=== PATIENT | male | born 1955 | race Caucasian/White ===

== ENCOUNTER 2016-08-01 23:25 | Inpatient (IN) | payer BC, OTHER ==
[2016-08-01] MEDS ORDERED: NS 1,000 ML IV ONE (23:39)
--- NOTE | 2016-08-01 23:39 | EDPHY ---
H & P Stated Complaint: prostate biopy 07/30 N/V chills Source: Patient - Personal History Current Tetanus Diphtheria and Acellular Pertussis (TDAP): Yes - Medical/Surgical History Hx Asthma: No Hx Chronic Respiratory Disease: No Hx Diabetes: No Hx Cardiac Disease: No Hx Renal Disease: No Hx Cirrhosis: No Hx Alcoholism: No Hx HIV/AIDS: No Hx Splenectomy or Spleen Trauma: No Other PMH: recent elevated TSA - Social History Smoking Status: Never smoked HPI/ROS: HPI CHIEF COMPLAINT: Nausea, vomiting, rigors, chills, recent prostate biopsy HISTORY OF PRESENT ILLNESS: This patient very pleasant 61-year-old male, presents emergency room with rigors and chills nausea vomiting x3 episodes approximately an hour ago while trying to go to bed. On Thursday he had a prostate biopsy done at the [facility] this was a transrectal bx. He tolerated this procedure well. He had a normal bowel movement earlier today. Been eating and drinking well. Denies developed sudden-onset chills and rigors and vomiting. Denies any significant chest pain or shortness of breath. He does have some lower pelvic pain. And rectal pain. Denies bloody stools. Denies dysuria he did had initially after the biopsy have some blood in his urine and blood per rectum however this is resolved he tells me. This prostate biopsy was due for to an elevated PSA. T-max at home 99.7. Was given Tylenol prior to arrival. Past Medical History: GERD Past Surgical History: Transrectal biopsy of the prostate Social History: Denies daily use of drugs alcohol tobacco products Family History: Noncontributory ROS REVIEW OF SYSTEMS: A comprehensive 10 point review of systems is otherwise negative aside from elements mentioned in the history of present illness. Exam Constitutional appears well nontoxic, triage nursing summary reviewed, vital signs reviewed, awake/alert. Eyes normal conjunctivae and sclera, EOMI, PERRLA. HENT normal inspection, atraumatic, moist mucus membranes, no epistaxis, neck supple/ no meningismus, no raccoon eyes. Respiratory clear to auscultation bilaterally, normal breath sounds, no respiratory distress, no wheezing. Cardiovascular rate normal, regular rhythm, no murmur, no edema, distal pulses normal. Gastrointestinal soft, non-tender, no rebound, no guarding, normal bowel sounds, no distension, no pulsatile mass. Genitourinary no CVA tenderness. Musculoskeletal no midline vertebral tenderness, full range of motion, no calf swelling, no tenderness of extremities, no meningismus, good pulses, neurovascularly intact. Skin pink, warm, & dry, no rash, skin atraumatic. Neurologic awake, alert and oriented x 3, AAOx3, moves all 4 extremities equally, motor intact, sensory intact, CN II-XII intact, normal cerebellar, normal vision, normal speech. Psychiatric normal mood/affect. Heme/Lymph/Immune no lymphadenopathy. Differential Diagnosis: Includes but is not limited to in a particular order sepsis, bacteremia, prostatitis, urinary tract infection Medical Decision Making: Plan for this patient IV establishment, blood cultures , lactic acid, IV fluid bolus IV Zofran urinalysis and re-evaluation. Re-evaluation: CT scan of the abdomen pelvis with IV contrast. The results of the study are no evidence of significant abscess or significant inflammation, minimal rectal stranding from biopsy. The study was read by Dr. Jose Huang I viewed the images myself on the PACS system. [id number]: Spoke with the hospitalist service they agree to admit this patient for observation overnight for rigors chills and possible fever after transrectal prostate biopsy. No evidence of intra-abdominal abscess on CT scan , urine does not show signs of infection. The patient did receive 2 g Rocephin here in the emergency room. Blood cultures have been pulled. Urine cultures been sent. Patient is hemodynamically stable and comfortable with plan of being observed overnight. Reason for observation is rigors, chills, 99.7 fever at recent transrectal biopsy. Rule out bacteremia. (Lukas Loera) Constitutional: Initial Vital Signs Temperature (C) 37.3 C 08/01/16 23:31 Heart Rate 101 H 08/01/16 23:31 Respiratory Rate 20 08/01/16 23:31 Blood Pressure 134/88 H 08/01/16 23:31 O2 Sat (%) 94 08/01/16 23:31 O2 Delivery Mode Room Air Allergies/Adverse Reactions: No Known Allergies Allergy (Unverified 08/01/16 23:31) Home Medications: Medication Instructions Recorded PRILOSEC 20 mg PO DAILY 08/25/09 Amoxicillin/Clavulanate Pot 875 mg PO BID #28 tab 08/02/16 [Augmentin 875 MG TAB (*)] Medical Decision Making ED Course/Re-evaluation: The patient was boarded in the emergency department and evaluated in the morning by Dr. Josh Bledsoe. The patient will be discharged home from the ED after his observation admission with oral antibiotics. Customary aftercare instructions are given to the patient. (Mikey Ortiz) - Data Points Laboratory Results: Laboratory Results 08/01/16 23:51 08/01/16 23:51 08/02/16 08/01/16 08/01/16 00:50 23:51 23:51 WBC 9.61 10^3/uL H 10^3/uL (3.80-9.50) RBC 4.75 10^6/uL 10^6/uL (4.40-6.38) Hgb 14.7 g/dL g/dL (13.7-17.5) Hct 41.3 % % (40.0-51.0) MCV 86.9 fL fL (81.5-99.8) MCH 30.9 pg pg (27.9-34.1) MCHC 35.6 g/dL g/dL (32.4-36.7) RDW 12.4 % % (11.5-15.2) Plt Count 207 10^3/uL 10^3/uL (150-400) MPV 9.8 fL fL (8.7-11.7) Neut % (Auto) 90.7 % H % (39.3-74.2) Lymph % (Auto) 6.9 % L % (15.0-45.0) [place] % (Auto) 0.5 % L % (4.5-13.0) Eos % (Auto) 0.8 % % (0.6-7.6) Baso % (Auto) 0.4 % % (0.3-1.7) Nucleat RBC Rel Count 0.0 % % (0.0-0.2) Absolute Neuts (auto) 8.71 10^3/uL H 10^3/uL (1.70-6.50) Absolute Lymphs (auto) 0.66 10^3/uL L 10^3/uL (1.00-3.00) Absolute Monos (auto) 0.05 10^3/uL L 10^3/uL (0.30-0.80) Absolute Eos (auto) 0.08 10^3/uL 10^3/uL (0.03-0.40) Absolute Basos (auto) 0.04 10^3/uL 10^3/uL (0.02-0.10) Absolute Nucleated RBC 0.00 10^3/uL 10^3/uL (0-0.01) Immature Gran % 0.7 % % (0.0-1.1) Immature Gran # 0.07 10^3/uL 10^3/uL (0.00-0.10) VBG Lactic Acid Sodium 144 mEq/L mEq/L (134-144) Potassium 4.0 mEq/L mEq/L (3.5-5.2) Chloride 110 mEq/L mEq/L (97-110) Carbon Dioxide 23 mEq/l mEq/l (22-31) Anion Gap 11 mEq/L mEq/L (8-16) BUN 26 mg/dL H mg/dL (7-23) Creatinine 1.4 mg/dL H mg/dL (0.7-1.3) Estimated GFR 52 Glucose 100 mg/dL mg/dL (70-100) Calcium 9.9 mg/dL mg/dL (8.5-10.4) Urine Color YELLOW Urine Appearance CLEAR Urine pH 5.0 (5.0-7.5) Ur Specific [place] 1.023 (1.002-1.030) Urine Protein NEGATIVE (NEGATIVE) Urine Ketones TRACE H (NEGATIVE) Urine Blood NEGATIVE (NEGATIVE) Urine Nitrate NEGATIVE (NEGATIVE) Urine Bilirubin NEGATIVE (NEGATIVE) Urine Urobilinogen NEGATIVE EU EU (0.2-1.0) Ur Leukocyte Esterase NEGATIVE (NEGATIVE) Urine Glucose NEGATIVE (NEGATIVE) 08/01/16 23:51 WBC RBC Hgb Hct MCV MCH MCHC RDW Plt Count MPV Neut % (Auto) Lymph % (Auto) [place] % (Auto) Eos % (Auto) Baso % (Auto) Nucleat RBC Rel Count Absolute Neuts (auto) Absolute Lymphs (auto) Absolute Monos (auto) Absolute Eos (auto) Absolute Basos (auto) Absolute Nucleated RBC Immature Gran % Immature Gran # VBG Lactic Acid 1.5 mmol/L mmol/L (0.7-2.1) Sodium Potassium Chloride Carbon Dioxide Anion Gap BUN Creatinine Estimated GFR Glucose Calcium Urine Color Urine Appearance Urine pH Ur Specific [place] Urine Protein Urine Ketones Urine Blood Urine Nitrate Urine Bilirubin Urine Urobilinogen Ur Leukocyte Esterase Urine Glucose Microbiology Results: MICROBIOLOGY 08/01/16 23:51 Blood Blood Culture - Preliminary Gram Negative Jose 08/02/16 00:50 Urine,Clean Catch Urine Culture - Preliminary Medications Given: Discontinued Medications Sodium Chloride (Ns) 1,000 mls @ 0 mls/hr IV ONCE ONE PRN Reason: Wide Open Stop: 08/01/16 23:40 Last Admin: 08/01/16 23:56 Dose: 1,000 mls Ceftriaxone Sodium 2 gm/ (Dextrose) 50 mls @ 100 mls/hr IV EDNOW ONE PRN Reason: Protocol Stop: 08/02/16 00:15 Last Admin: 08/02/16 00:15 Dose: 50 mls Sodium Chloride (Ns) 1,000 mls @ 0 mls/hr IV ONCE ONE PRN Reason: Wide Open Stop: 08/02/16 01:19 Last Admin: 08/02/16 01:18 Dose: 1,000 mls Ondansetron HCl (Zofran) 4 mg IVP EDNOW ONE Stop: 08/01/16 23:41 Last Admin: 08/01/16 23:56 Dose: 4 mg Departure - Departure Disposition: [facility] Acute Clinical Impression: Rigors Fever Qualifiers: Fever type: unspecified Qualified Code(s): R50.9 - Fever, unspecified Abdominal pain Qualifiers: Abdominal location: lower abdomen, unspecified Qualified Code(s): R10.30 - Lower abdominal pain, unspecified Condition: Good
[2016-08-01] MEDS ORDERED: ONDANSETRON 4 MG/2 ML VIAL IVP ONE (23:40)
[2016-08-01] MEDS ORDERED: cefTRIAXone 2 GM in D5W 50 ML IV ONE (23:46)
[2016-08-02] LABS: % IMMATURE GRANULYOCYTES 0.7 % (0.0-1.1); ABSOLUTE IMMATURE GRANULOCYTES 0.07 10^3/uL (0.00-0.10); ADD DIFF? NO; ADD MORPH? NO; ADD SCAN? NO; ATYPICAL LYMPHOCYTE FLAG 0 (0-99); FRAGMENT RBC FLAG 0 (0-99); HEMATOCRIT 41.3 % (40.0-51.0); HEMOGLOBIN 14.7 g/dL (13.7-17.5); LEFT SHIFT FLG 10 (0-99); LIPEMIA HEMOLYSIS FLAG 90 (0-99); MEAN CELL HEMOGLOBIN 30.9 pg (27.9-34.1); MEAN CELL HEMOGLOBIN CONCENTR. 35.6 g/dL (32.4-36.7); MEAN CELL VOLUME 86.9 fL (81.5-99.8); MEAN PLATELET VOLUME 9.8 fL (8.7-11.7); PLATELET CLUMPS FLAG 0 (0-99); PLATELET COUNT 207 10^3/uL (150-400); RED BLOOD CELL COUNT 4.75 10^6/uL (4.40-6.38); RED CELL DISTRIBUTION WIDTH 12.4 % (11.5-15.2)
[2016-08-02 00:18] LABS: ANION GAP 11 mEq/L (8-16); CALCIUM 9.9 mg/dL (8.5-10.4); CARBON DIOXIDE 23 mEq/l (22-31); CHLORIDE 110 mEq/L (97-110); CREATININE 1.4 mg/dL (0.7-1.3); GLOMERULAR FILTRATION RATE 52; GLUCOSE 100 mg/dL (70-100); SODIUM 144 mEq/L (134-144)
[2016-08-02] MEDS ORDERED: IOPAMIDOL (ISOVUE-300) 100 ML BTL IV ONE (00:57)
[2016-08-02 01:14] LABS: COLOR YELLOW; LEUKOCYTE ESTERASE,URINE NEGATIVE (NEGATIVE); NITRITE,URINE NEGATIVE (NEGATIVE)
[2016-08-02] MEDS ORDERED: NS 1,000 ML IV ONE (01:18)
[2016-08-02] MEDS ORDERED: oxyCODONE IR 5 MG TAB PO PRN (02:48)
[2016-08-02] MEDS ORDERED: ONDANSETRON 4 MG/2 ML VIAL IVP PRN (02:48)
[2016-08-02] MEDS ORDERED: ONDANSETRON DISINTEGRATING 4 MG TAB PO PRN (02:48)
--- NOTE | 2016-08-02 05:28 | PDGENHP ---
History and Physical - Chief Complaint shaking chills - History of Present Illness Patient is a 61-year-old male with history of GERD who presents to the ED with complaint of shaking chills this evening. Patient reports that on Thursday he had a transrectal prostate biopsy performed to evaluate an up trending PSA. After this biopsy he had some tenderness, some hematuria and minor rectal bleeding, which had resolved over the following day. He reports normal urination and bowel movements since. However, he continued to have mild suprapubic tenderness and this evening he developed generalized malaise and shaking chills. In addition he also had sudden onset nausea and vomited about 3 times, non bilious nonbloody. His , who is an RN, checked his temperature (99.9) and recommended taking come to the ED for further evaluation. He denies any diarrhea, cough, congestion, chest pain, palpitations , shortness of breath or headache. On arrival to the ED patient was afebrile hemodynamically stable. Labs revealed slight leukocytosis, but were otherwise normal, UA was negative. CT abd /pelvis was unremarkable for any acute findings. He was given IV fluid hydration and a dose of ceftriaxone and admitted to the hospitalist service for further management. History Information - Allergies/Home Medication List Allergies/Adverse Reactions: No Known Allergies Allergy (Unverified 08/01/16 23:31) Home Medications: PRILOSEC 20 mg PO DAILY 08/25/09 [Last Taken Unknown] I have personally reviewed and updated: family history, medical history, social history, surgical history - Past Medical History Additional medical history: GERD - Surgical History Additional surgical history: Knee arthroscopy. R inguinal hernia repair. tonsillectomy - Family History Positive for: non-pertinent - Social History Smoking Status: Never smoked Alcohol Use: Occasionally Drug Use: None Additional social history: Retired from [employer], currently working in [employer]. Lives with . Review of Systems ROS: 10pt was reviewed & negative except for what was stated in HPI & below Physical Exam Temp Pulse Resp BP Pulse Ox 37.5 C 77 16 127/74 H 95 08/02/16 00:00 08/02/16 02:00 08/02/16 02:00 08/02/16 02:00 08/02/16 02:00 Constitutional: no apparent distress, appears nourished, not in pain Eyes: PERRL, anicteric sclera, EOMI Ears, Nose, Mouth, Throat: moist mucous membranes, hearing normal, ears appear normal, no oral mucosal ulcers Cardiovascular: regular rate and rhythym, no murmur, rub, or gallop, pulses symmetric bilaterally, No JVD, No edema Peripheral Pulses: 2+: dorsalis-pedis (R), dorsalis-pedis (L) Respiratory: no respiratory distress, no rales or rhonchi, clear to auscultation Gastrointestinal: normoactive bowel sounds, soft, non-tender abdomen, no palpable masses Genitourinary: no bladder fullness, other (mild suprapubic tenderness) Skin: warm, normal color, no rashes or abrasions, no fluctuance, no induration, No mottled Musculoskeletal: full muscle strength, no muscle tenderness, normal joint ROM, no joint effusions Neurologic: AAOx3, sensation intact bilaterally, CN II-XII Intact, No weakness, No numbness Psychiatric: interacting appropriately, not anxious, not encephalopathic, thought process linear Lab Data & Imaging Review 08/01/16 23:51 08/01/16 23:51 WBC 9.61 10^3/uL (3.80-9.50) H 08/01/16 23:51 RBC 4.75 10^6/uL (4.40-6.38) 08/01/16 23:51 Hgb 14.7 g/dL (13.7-17.5) 08/01/16 23:51 Hct 41.3 % (40.0-51.0) 08/01/16 23:51 MCV 86.9 fL (81.5-99.8) 08/01/16 23:51 MCH 30.9 pg (27.9-34.1) 08/01/16 23:51 MCHC 35.6 g/dL (32.4-36.7) 08/01/16 23:51 RDW 12.4 % (11.5-15.2) 08/01/16 23:51 Plt Count 207 10^3/uL (150-400) 08/01/16 23:51 MPV 9.8 fL (8.7-11.7) 08/01/16 23:51 Neut % (Auto) 90.7 % (39.3-74.2) H 08/01/16 23:51 Lymph % (Auto) 6.9 % (15.0-45.0) L 08/01/16 23:51 [place] % (Auto) 0.5 % (4.5-13.0) L 08/01/16 23:51 Eos % (Auto) 0.8 % (0.6-7.6) 08/01/16 23:51 Baso % (Auto) 0.4 % (0.3-1.7) 08/01/16 23:51 Nucleat RBC Rel Count 0.0 % (0.0-0.2) 08/01/16 23:51 Absolute Neuts (auto) 8.71 10^3/uL (1.70-6.50) H 08/01/16 23:51 Absolute Lymphs (auto) 0.66 10^3/uL (1.00-3.00) L 08/01/16 23:51 Absolute Monos (auto) 0.05 10^3/uL (0.30-0.80) L 08/01/16 23:51 Absolute Eos (auto) 0.08 10^3/uL (0.03-0.40) 08/01/16 23:51 Absolute Basos (auto) 0.04 10^3/uL (0.02-0.10) 08/01/16 23:51 Absolute Nucleated RBC 0.00 10^3/uL (0-0.01) 08/01/16 23:51 Immature Gran % 0.7 % (0.0-1.1) 08/01/16 23:51 Immature Gran # 0.07 10^3/uL (0.00-0.10) 08/01/16 23:51 VBG Lactic Acid 1.5 mmol/L (0.7-2.1) 08/01/16 23:51 Sodium 144 mEq/L (134-144) 08/01/16 23:51 Potassium 4.0 mEq/L (3.5-5.2) 08/01/16 23:51 Chloride 110 mEq/L (97-110) 08/01/16 23:51 Carbon Dioxide 23 mEq/l (22-31) 08/01/16 23:51 Anion Gap 11 mEq/L (8-16) 08/01/16 23:51 BUN 26 mg/dL (7-23) H 08/01/16 23:51 Creatinine 1.4 mg/dL (0.7-1.3) H 08/01/16 23:51 Estimated GFR 52 08/01/16 23:51 Glucose 100 mg/dL (70-100) 08/01/16 23:51 Calcium 9.9 mg/dL (8.5-10.4) 08/01/16 23:51 Urine Color YELLOW 08/02/16 00:50 Urine Appearance CLEAR 08/02/16 00:50 Urine pH 5.0 (5.0-7.5) 08/02/16 00:50 Ur Specific [place] 1.023 (1.002-1.030) 08/02/16 00:50 Urine Protein NEGATIVE (NEGATIVE) 08/02/16 00:50 Urine Ketones TRACE (NEGATIVE) H 08/02/16 00:50 Urine Blood NEGATIVE (NEGATIVE) 08/02/16 00:50 Urine Nitrate NEGATIVE (NEGATIVE) 08/02/16 00:50 Urine Bilirubin NEGATIVE (NEGATIVE) 08/02/16 00:50 Urine Urobilinogen NEGATIVE EU (0.2-1.0) 08/02/16 00:50 Ur Leukocyte Esterase NEGATIVE (NEGATIVE) 08/02/16 00:50 Urine Glucose NEGATIVE (NEGATIVE) 08/02/16 00:50 Visualized and Interpreted imaging results: Yes Interpretation: CT abd/pelvis: no acute findings, stoo l in colon Assessment & Plan Assessment: Patient is a 61-year-old male with history of GERD, recent transrectal prostate biopsy who presents to the ED with complaint of rigors and low-grade fever at home. ED evaluation is largely unrevealing for source of infection, but given recent transrectal prostate biopsy, he is being admitted for observation. Plan: # fever Patient reports rigors, fever prior to arrival to the ED for which she took Tylenol at home. On arrival to the ED patient was afebrile, without signs of SIRS /sepsis. However CBC does show a left shift, concerning for possible early infection. Given his recent transrectal prostate biopsy, this may be the source of infection, although UA is negative. He was cultured initiated on ceftriaxone. Will continue IV fluid hydration, overnight monitoring for fever/ signs of sepsis and will continue IV ceftriaxone. # GERD Stable, cont home med. # dispo: admit to observation # gen Full code
[2016-08-02 06:15] LABS: % IMMATURE GRANULYOCYTES 0.7 % (0.0-1.1); ADD DIFF? NO; ADD MORPH? NO; ADD SCAN? NO; ATYPICAL LYMPHOCYTE FLAG 0 (0-99); FRAGMENT RBC FLAG 0 (0-99); HEMATOCRIT 35.8 % (40.0-51.0); HEMOGLOBIN 12.4 g/dL (13.7-17.5); LEFT SHIFT FLG 10 (0-99); LIPEMIA HEMOLYSIS FLAG 90 (0-99); MEAN CELL HEMOGLOBIN 30.6 pg (27.9-34.1); MEAN CELL HEMOGLOBIN CONCENTR. 34.6 g/dL (32.4-36.7); MEAN CELL VOLUME 88.4 fL (81.5-99.8); PLATELET CLUMPS FLAG 10 (0-99); PLATELET COUNT 153 10^3/uL (150-400); RED BLOOD CELL COUNT 4.05 10^6/uL (4.40-6.38); RED CELL DISTRIBUTION WIDTH 12.4 % (11.5-15.2)
[2016-08-02 06:25] LABS: ANION GAP 7 mEq/L (8-16); CALCIUM 7.6 mg/dL (8.5-10.4); CARBON DIOXIDE 20 mEq/l (22-31); CHLORIDE 117 mEq/L (97-110); CREATININE 1.1 mg/dL (0.7-1.3); GLOMERULAR FILTRATION RATE > 60; GLUCOSE 88 mg/dL (70-100); MAGNESIUM 1.6 mg/dL (1.6-2.3); POTASSIUM 3.5 mEq/L (3.5-5.2); SODIUM 144 mEq/L (134-144)
[2016-08-02] MEDS ORDERED: CEFTRIAXONE 1 GM/DEXTROSE/50 ML BAG IV ONE (08:24)
--- NOTE | 2016-08-02 11:42 | HOSPPROG ---
Hospitalist Progress Note Subjective: now w gnr in blood- not safe for dc Objective: Vital Signs Temp Pulse Resp BP Pulse Ox 37.2 C 78 16 146/76 H 96 08/02/16 11:25 08/02/16 11:25 08/02/16 11:25 08/02/16 11:25 08/02/16 11:25 Laboratory Results 08/02/16 06:02 08/02/16 06:02 ICD10 Worksheet Patient Problems: Problems Problem Status Onset Abdominal pain Acute Fever Acute Rigors Acute
[2016-08-02] MEDS ORDERED: PRILOSEC 20 MG PO SCH (11:45)
--- NOTE | 2016-08-02 11:51 | GDS ---
[f rep st] DISCHARGE SUMMARY DISCHARGE DIAGNOSES: 1. Fever with likely prostatitis following prostate biopsy. 2. Gastrointestinal reflux disease. 3. Benign prostatic hypertrophy with rising PSA. HOSPITAL COURSE: Please see admission history and physical by Dr. Nereida Dawkins. The patient p resented overnight with fevers following a transrectal prostate biopsy with 14 passes done at the [facility] and received Bactrim prophylaxis. He had an abdominal CT showing prostatomegaly but other kent unremarkable. Blood cultures drawn. UA was negative, which does not rule out a prostate infec tion. His creatinine was elevated at 1.4, but on repeat it was 1.1. His baseline is about 1.1. He was afebrile while here. He did have leukocytosis. The patient is anxious for discharge, and I will discharge him with 2 weeks of Augmentin. The patient and his are both nurses. I advised him that there is a chance he may fail outpatie nt therapy and require readmission. He was advised to return to the hospital for fever, rigors, lig htheadedness, dizziness, shortness of breath, etc. The patient demonstrated understanding. He is a nurse, as is his as well. He is able to understand these instructions. Prescription for Jacinta shane. /[id number]/MODL
[2016-08-02] MEDS: ACETAMINOPHEN 500 MG TAB PO PRN ×2 (12:14→21:03)
[2016-08-02] MEDS: NS 1,000 ML IV SCH ×2 (13:09→20:04)
--- NOTE | 2016-08-02 14:15 | HOSPPROG ---
Hospitalist Progress Note Assessment/Plan: 61 yo M w gnr bacteremia and sepsis following prostate biopsy sepsis: source is colon via prostate biopsy lactate normal cr imporved prostatitis: 2/2 biopsy on ceftriaxone proph: add lmwh JOSE ELIAS: pre renal; resolved dispo: inpatient Subjective: case discussed w dr elizondo. ct images reviewed/interpreted by me. > 35 minutes spent on care, including 20' face to face counselling Objective: Vital Signs Temp Pulse Resp BP Pulse Ox 38.9 C H 92 96 H 140/77 H 20 L 08/02/16 12:50 08/02/16 12:50 08/02/16 12:50 08/02/16 12:50 08/02/16 12:50 Laboratory Results 08/02/16 06:02 08/02/16 06:02 08/01/16 08/02/16 08/03/16 05:59 05:59 05:59 Intake Total 1000 Balance 1000 - Physical Exam Constitutional: no apparent distress, appears nourished Eyes: PERRL, anicteric sclera Ears, Nose, Mouth, Throat: moist mucous membranes, hearing normal, ears appear normal Cardiovascular: regular rate and rhythym, no murmur, rub, or gallop, systolic murmur Respiratory: no respiratory distress, no rales or rhonchi, clear to auscultation Gastrointestinal: normoactive bowel sounds, soft, non-tender abdomen, No guarding, No rebound Genitourinary: No landry in urethra Skin: warm, normal color Musculoskeletal: full muscle strength, no muscle tenderness Neurologic: AAOx3 Psychiatric: interacting appropriately ICD10 Worksheet Patient Problems: Problems Problem Status Onset Abdominal pain Acute Fever Acute Rigors Acute
--- NOTE | 2016-08-02 14:37 | GCON ---
[f rep st] CONSULTATION INFECTIOUS DISEASES CONSULTATION REQUESTING PHYSICIAN: Dr. Josh Bledsoe. REASON FOR CONSULTATION: Sepsis due to gram-negative junior bacteremia. HISTORY OF PRESENT ILLNESS: Patient is a 61-year-old male without significant past medical history who underwent prostate biopsy at the [facility] on Thursday morning to investigate a rising PSA. Prior to the biopsy, the patient was feeling completely well. He took Bactrim prophylaxis prior to the biops y and the evening post biopsy. Yesterday, he developed the abrupt onset of fever and shaking chills . His temperature when checked was only 99.9, but he had associated rigors. His , who is a allen se, advised that he came to the emergency department for further evaluation. He does describe havin g some intermittent post biopsy hematuria. He has had some mild suprapubic pain. No flank pain. H e did have nausea with 1 episode of vomiting in route to the emergency department. No diarrhea. He has had some blood in his stool post biopsy. Patient has received IV hydration and was started on ceftriaxone yesterday. Blood cultures obtained at the time of admission are now showing 1 of 2 sets with Klebsiella pneumoniae. Given the above findings, I am now asked to assist in his ongoing fanny vargas. PAST MEDICAL HISTORY: Gastroesophageal reflux. PAST SURGICAL HISTORY: Knee arthroscopy, tonsillectomy, herniorrhaphy, prostate biopsy, as outlined above. CURRENT MEDICATIONS: Ceftriaxone 1 g IV daily, Protonix 40 mg p.o. daily, as needed Zofran. ALLERGIES: No known drug allergies. SOCIAL HISTORY: Patient does not smoke. He drinks 2 alcoholic beverages twice per week. No drug u se. He has worked in the as a nurse. No recent travel. He was in [facility] 3 years ago as p art of his service. [place] to [place]. FAMILY HISTORY: Hypercholesterolemia in his mother. REVIEW OF SYSTEMS: Other than the HPI, remainder of 10-system review was unremarkable. PHYSICAL EXAMINATION: VITAL SIGNS: Temperature 38.9, heart rate 92, respiratory rate 20, blood pre ssure 140/77, oxygen saturation 96% on room air. GENERAL: Patient is well nourished, well develope d, no acute distress. He appears nontoxic. HEENT: There are no scleral icterus, conjunctival inje ction, conjunctival petechiae. Oropharynx is clear without lesions. Mucous membranes are dry. The re is no nasal discharge. There is no tenderness over the frontal, maxillary, or mastoid area. NEC K: Supple without palpable lymphadenopathy or thyromegaly. CHEST: Clear to auscultation bilateral ly without adventitious sounds. Respiratory effort normal. CARDIOVASCULAR: Regular rate and rhyth m without murmurs, gallops, rubs. ABDOMEN: Soft, mildly tender in the suprapubic region. No perit velazco signs. No palpable organomegaly. Bowel sounds are present. BACK: There is no CVA tendernes s bilaterally. MUSCULOSKELETAL: No cyanosis, clubbing, or edema. LYMPHATICS: There are no cervic al or supraclavicular or inguinal nodes palpable. NEUROLOGIC: Patient is alert and interacts appro priately with examiner. Cranial nerves II through XII are grossly intact. Sensation is grossly int act. SKIN: Diffusely warm to palpation slight diaphoresis; there are no stigmata of endocarditis. LABORATORY DATA: White blood cell count 14.2, hematocrit 35.8, platelets 153, neutrophils 94%, seru m creatinine is 1.1, bicarbonate is 20, anion gap is 7. Lactic acid is 1.5. Urinalysis shows trace ketones, otherwise negative. Blood cultures with 1 of 2 sets showing growth of Klebsiella pneumoni ae. Urine culture is currently pending. CT scan of the abdomen and pelvis shows some nonspecific s tranding in the mesorectal fascia post biopsy. IMPRESSION: Sepsis due to Klebsiella pneumoniae bacteremia: Bacteremia in the setting of recent pr ostate biopsy. Patient is clinically improved with IV fluid and ceftriaxone therapy. Local antibio tic susceptibility to Klebsiella remains high to third generation cephalosporins. Therefore, will c ontinue with ceftriaxone pending susceptibility which will be available tomorrow. RECOMMENDATIONS: 1. Agree with ceftriaxone. Will increase to 2 g IV daily. 2. Follow up blood culture susceptibility of Klebsiella pneumoniae as available. 3. Continued inpatient observation based on above findings until patient has shown clinical improve ment and antibiotic susceptibilities are available for definitive treatment plan. Thank you for this consultation. We will continue to follow the patient with you. /[id number]/MODL
[2016-08-02] MEDS ORDERED: PANTOPRAZOLE SODIUM 40 MG TAB PO SCH (21:00)
[2016-08-02 23:38] VITALS: RESP 16
[2016-08-03 07:07] LABS: % IMMATURE GRANULYOCYTES 0.7 % (0.0-1.1); ABSOLUTE IMMATURE GRANULOCYTES 0.05 10^3/uL (0.00-0.10); ADD DIFF? NO; ADD MORPH? NO; ADD SCAN? NO; ATYPICAL LYMPHOCYTE FLAG 0 (0-99); FRAGMENT RBC FLAG 0 (0-99); HEMATOCRIT 35.6 % (40.0-51.0); HEMOGLOBIN 12.3 g/dL (13.7-17.5); LEFT SHIFT FLG 10 (0-99); LIPEMIA HEMOLYSIS FLAG 90 (0-99); MEAN CELL HEMOGLOBIN 30.5 pg (27.9-34.1); MEAN CELL HEMOGLOBIN CONCENTR. 34.6 g/dL (32.4-36.7); MEAN CELL VOLUME 88.3 fL (81.5-99.8); MEAN PLATELET VOLUME 9.7 fL (8.7-11.7); PLATELET CLUMPS FLAG 10 (0-99); PLATELET COUNT 145 10^3/uL (150-400); RED BLOOD CELL COUNT 4.03 10^6/uL (4.40-6.38); RED CELL DISTRIBUTION WIDTH 12.4 % (11.5-15.2)
[2016-08-03 07:34] LABS: ANION GAP 5 mEq/L (8-16); CALCIUM 7.9 mg/dL (8.5-10.4); CARBON DIOXIDE 24 mEq/l (22-31); CHLORIDE 109 mEq/L (97-110); CREATININE 1.1 mg/dL (0.7-1.3); GLOMERULAR FILTRATION RATE > 60; GLUCOSE 103 mg/dL (70-100); POTASSIUM 3.7 mEq/L (3.5-5.2); SODIUM 138 mEq/L (134-144)
[2016-08-03 07:38] VITALS: BP 119/73
[2016-08-03] MEDS ORDERED: PANTOPRAZOLE SODIUM 40 MG TAB PO SCH (09:00)
--- NOTE | 2016-08-03 09:15 | HOSPPROG ---
Hospitalist Progress Note Assessment/Plan: 61 yo M w gnr bacteremia and sepsis following prostate biopsy sepsis: source is colon via prostate biopsy lactate normal cr imporved bacteremia: klebsiella final sensitivities pending repeat cultures are pending prostatitis: 2/2 biopsy on ceftriaxone tachypnea: likely 2/2 fever clear cxr proph: add lmwh JOSE ELIAS: pre renal; resolved dispo: inpatient Subjective: tachypneic and febrile overnight. cxr w no infiltrate (interp by me ). case d/w dr elizondo. feels well this AM Objective: Vital Signs Temp Pulse Resp BP Pulse Ox 36.7 C 68 16 119/73 96 08/03/16 07:38 08/03/16 07:38 08/03/16 07:38 08/03/16 07:38 08/03/16 07:38 Laboratory Results 08/03/16 06:50 08/03/16 06:50 08/02/16 08/03/16 08/04/16 05:59 05:59 05:59 Intake Total 2634 Balance 2634 - Physical Exam Constitutional: no apparent distress, appears nourished Eyes: PERRL, anicteric sclera Ears, Nose, Mouth, Throat: moist mucous membranes, hearing normal Cardiovascular: regular rate and rhythym, no murmur, rub, or gallop Respiratory: no respiratory distress, no rales or rhonchi, clear to auscultation Gastrointestinal: normoactive bowel sounds, soft, non-tender abdomen, No guarding, No rebound Genitourinary: No landry in urethra Skin: warm, normal color Musculoskeletal: full muscle strength, no muscle tenderness Neurologic: AAOx3, sensation intact bilaterally Psychiatric: interacting appropriately, not anxious Lymph, Heme, Immunologic: no cervical LAD ICD10 Worksheet Patient Problems: Problems Problem Status Onset Abdominal pain Acute Fever Acute Rigors Acute
[2016-08-03 11:38] VITALS: PULSE 78; TEMP 98.9; O2SAT 95
--- NOTE | 2016-08-03 12:55 | GDS ---
[f rep st] DISCHARGE SUMMARY DISCHARGE DIAGNOSES: 1. Recent prostate biopsy. 2. Klebsiella bacteremia; sensitivities pending. HOSPITAL COURSE: Please see admission history and physical by Dr. Nereida Dawkins as well as yest eliud's discharge summary. The patient remained in the hospital overnight given rigors and positive blood cultures. He had acute kidney injury that resolved with hydration. At this point in time, s ensitivities are pending on the Klebsiella. He is given a script for levofloxacin with plans to fol low up with Dr. Ansari via phone for tomorrow to figure out the sensitivity. He has a to go t omorrow. He and his are both nurses. They understand the plan and know to re-present if they have recurrent fevers or rigors. /[id number]/MODL
--- NOTE | 2016-08-03 13:57 | PCMIDPN ---
Assessment/Plan: Assessment/Plan: * Sepsis due to Klebsiella pneumoniae bacteremia status post prostate biopsy: Febrile overnight but otherwise clinically improved and feels much better. Klebsiella susceptibilities will not be available until tomorrow. Will give dose of ceftriaxone today with plans for oral levofloxacin to begin tomorrow provided Klebsiella is susceptible. I will follow up on susceptibility profile tomorrow with plans to continue ceftriaxone which can be arranged through my office in event isolate is quinolone resistant. Risk of tendinopathy with quinolones discussed. 08/03/16 13:55 Subjective: Patient feels significantly improved. Did have fever and chills overnight. Tolerating diet fine. No urinary symptoms. Objective: Vital Signs Temp Pulse Resp BP Pulse Ox 37.2 C 78 16 119/73 95 08/03/16 11:38 08/03/16 11:38 08/03/16 11:38 08/03/16 11:38 08/03/16 11:38 Laboratory Results 08/03/16 06:50 08/03/16 06:50 08/02/16 08/03/16 08/04/16 05:59 05:59 05:59 Intake Total 2634 Balance 2634 Ceftriaxone # 3 Blood cultures with growth of Klebsiella pneumoniae; susceptibility pending - Physical Exam General Appearance: alert, no apparent distress EENT: pharynx normal Abdomen: non-tender, No distended Back: No CVA tenderness ICD10 Worksheet Patient Problems: Problems Problem Status Onset Abdominal pain Acute Fever Acute Rigors Acute
[2016-08-03] MEDS ORDERED: cefTRIAXone 2 GM in D5W 50 ML IV SCH (14:00)
--- NOTE | 2016-08-07 09:59 | PQFORM ---
PHYSICIAN QUERY FORM Needs Your Response This query form is being sent to you to assure this patient record is coded properly. Please respond to the question below: [employer] MACHINE QUESTION: Dr. Bledsoe, The diagnosis of Sepsis due to Klebsiella pneumoniae is documented on the progress note dated 08/03/16 and is not listed on the discharge summary.~ Would this be appropriate as an additional diagnosis on the discharge summary? Yes x No Other Clinically Undetermined Many thanks, SINCERE Novak HIM/Coding Department INSTRUCTIONS FOR RESPONSE: Answer question by clicking on the "Edit Document" button. Move cursor to area below the stars. When complete, hit "Save." Click on the "Sign" button, then click "Sign" again. Type in your PIN and hit "Enter." MTDD
== END 2016-08-03 15:19 | disposition home or self-care (01) | DRG 862 ==
LOC: F3E 08-02 12:02 → OBSVTOIN 08-02 14:15
PROVIDERS: ADMIT Internal Medicine; ATTEND Internal Medicine
DX: T81.4XXA Infection following a procedure, initial encounter (principal); A41.59 Other Gram-negative sepsis; B96.1 Klebsiella pneumoniae [K. pneumoniae] as the cause of diseases classified elsewhere; K21.9 Gastro-esophageal reflux disease without esophagitis; N41.9 Inflammatory disease of prostate, unspecified; N40.0 Benign prostatic hyperplasia without lower urinary tract symptoms; N17.9 Acute kidney failure, unspecified; R97.20 Elevated prostate specific antigen [PSA]
CPT/HCPCS: 96365; J0696; J2405; Q9967